=== PATIENT | male | born 1955 | race African-American/Black ===

== ENCOUNTER 2020-12-08 19:06 | Emergency (ER) | payer SELFPAY ==
[~2020-12-08] VITALS: Ht 188 cm; Wt 113.0 kg
[2020-12-08 23:00] VITALS: BP 152/92
== END 2020-12-08 23:00 | disposition home or self-care (01) ==
LOC: ER 19:06
DX: F17.200 Nicotine dependence, unspecified, uncomplicated (principal); Z98.890 Other specified postprocedural states
CPT/HCPCS: 82962; 99283